=== PATIENT | male | born 1970 | race Two or more races ===

== ENCOUNTER 2017-02-13 20:46 | Emergency (ER) | payer OTHER ==
[~2017-02-13] VITALS: Ht 172.7 cm; Wt 77.1 kg
--- NOTE | 2017-02-13 21:00 | NUR ---
PT PRESENTED TO THE ER WITH A C/O PARANOIA, FEELS LIKE PEOPLE ARE FOLLOWING HIM. HAS NOT EATEN HAD ANYTHING TO DRINK TODAY. PT FEELS THAT THERE IS POISON IN THE WATER. PT IS AA&O X4. PT IS ANSWERING ALL QUESTIONS CORRECTLY. DR. HANCOCK IS AT THE BEDSIDE WITH THE PT. PT IS UNABLE TO GIVE A URINE SAMPLE AT THIS TIME.
[2017-02-13] MEDS ORDERED: WELLBUTRIN (21:12)
[2017-02-13] MEDS ORDERED: LITHIUM (21:12)
[2017-02-13] MEDS ORDERED: TEGRETOL (21:12)
--- NOTE | 2017-02-13 21:14 | NUR ---
FAXED FACESHEET TO [facility],
[2017-02-13 21:17] LABS: BASOPHILS # (AUTO) 0.1 /CMM (0.0-0.2); EOSINOPHILS # (AUTO) 0.1 /CMM (0.0-0.7); EOSINOPHILS % (AUTO) 0.5 % (0.0-6.0); HEMATOCRIT 47 % (39-51); HEMOGLOBIN 16.5 g/dL (13.5-17.5); LYMPHOCYTES # (AUTO) 2.3 /CMM (0.8-4.8); LYMPHOCYTES % (AUTO) 21.9 % (20.0-44.0); MEAN CORPUSCULAR HEMOGLOBIN 32 PG (26.0-33.0); MEAN CORPUSCULAR HGB CONC 35 g/dl (31.0-36.0); MEAN CORPUSCULAR VOLUME 91 fL (80-96); NEUTROPHILS # (AUTO) 7.1 /CMM (1.8-8.9); NEUTROPHILS % (AUTO) 67.6 % (43.0-81.0); PLATELET COUNT (AUTO) 260 /CMM (150-450); RDW COEFFICIENT OF VARIATION 11.5 (11.5-15.0); RED BLOOD CELL COUNT(AUTO) 5.21 MIL/uL (4.5-6.0); WHITE BLOOD COUNT (AUTO) 10.6 K/uL (4.3-11.0)
[2017-02-13 21:27] LABS: CALCIUM, SERUM 9.5 mg/dL (8.5-10.1); CARBON DIOXIDE 29 mmol/L (21-32); CHLORIDE 103 mmol/L (98-107); CREATININE 1.2 mg/dL (0.6-1.3); GLUCOSE 123 mg/dL (74-106); POTASSIUM 4.1 mmol/L (3.5-5.1); SODIUM SERUM 140 mmol/L (136-145); UREA NITROGEN, BLOOD 23 mg/dL (7-18)
[2017-02-13 21:29] LABS: ALCOHOL, BLOOD < 3 mg/dL (0-0)
[2017-02-13 22:33] LABS: APPEARANCE,URINE SL CLOUDY (CLEAR); BILIRUBIN,URINE 1+ (NEGATIVE); BLOOD, URINE NEGATIVE Ery/uL (NEGATIVE); COLOR,URINE YELLOW (YELLOW); KETONES,URINE 1+ (NEGATIVE); LEUKOCYTE ESTERASE ,URINE NEGATIVE (NEGATIVE); NITRITE, URINE NEGATIVE (NEGATIVE); PH,URINE 5.5 (5.0-8.0); PROTEIN,URINE 1+ mg/dl (NEGATIVE); UGLUCOSE NEGATIVE (NEGATIVE)
[2017-02-13 22:44] LABS: BACTERIA,URINE None seen /HPF (None Seen); RBC,URINE 0-2 /HPF (0-2); SQUAMOUS EPITHELIAL CELL,UR Rare /HPF (None Seen); WBC,URINE 0-2 /HPF (0-3)
[2017-02-13 22:45] LABS: MUCUS,URINE Many /LPF (None Seen)
--- NOTE | 2017-02-13 22:52 | NUR ---
Patient discharged to home in stable condition. Written and verbal after care instructions given. Patient verbalizes understanding of instruction. PT'S IS DRIVING PT TO [facility]. PT'S VSS.
[2017-02-13 22:54] VITALS: BP 129/89
--- NOTE | 2017-02-13 23:13 | NUR ---
REPORT GIVEN TO JAYSON YUSUF AT [facility], [place].
== END 2017-02-13 22:55 | disposition home or self-care (01) ==
LOC: ER 20:46
DX: F31.9 Bipolar disorder, unspecified (principal); R45.851 Suicidal ideations
CPT/HCPCS: 36415; 80048; 80305; 81001; 85025; 99284; A4606; G0480; Z7610; 81000-TC

== ENCOUNTER 2019-06-16 19:06 | Emergency (ER) | payer OTHER ==
[~2019-06-16] VITALS: Ht 172.7 cm; Wt 77.1 kg
[~2019-06-16 19:06] MED LIST: LITHIUM; TEGRETOL; WELLBUTRIN
[2019-06-16 19:20] VITALS: BP 156/93
[2019-06-16] MEDS ORDERED: HYDROCODONE/APAP 5/325MG 1 EACH TABLET ONE (19:58)
[2019-06-16] MEDS ORDERED: HYDROCODONE/APAP 5/325MG 1 EACH TABLET PO ONE (20:00)
== END 2019-06-16 21:12 | disposition home or self-care (01) ==
LOC: ER 19:08
DX: M25.552 Pain in left hip (principal); G89.29 Other chronic pain; F31.9 Bipolar disorder, unspecified; R45.851 Suicidal ideations

== ENCOUNTER 2023-12-19 02:20 | Emergency (ER) | payer OTHER ==
[~2023-12-19] VITALS: Ht 175.3 cm; Wt 104.3 kg
[2023-12-19 02:47] VITALS: BP 139/89; TEMP 98.2
[2023-12-19 02:54] VITALS: O2SAT 98
[2023-12-19] MEDS ORDERED: FLUORESCEIN SODIUM OPHTH 1 EA STRIP ONE (03:48)
[2023-12-19] MEDS: TETRACAINE HCL 0.5% OPHTALMIC 15 ML BOTTLE OP ONE (03:57)
[2023-12-19] MEDS: FLUORESCEIN SODIUM OPHTH 1 EA STRIP OP ONE (03:57)
== END 2023-12-19 04:30 | disposition home or self-care (01) ==
LOC: ER 02:30
DX: H10.9 Unspecified conjunctivitis (principal)